=== PATIENT | male | born 1955 | race Two or more races ===

== ENCOUNTER 2024-03-05 13:04 | Emergency (ER) | payer OTHER ==
[~2024-03-05] VITALS: Ht 170.2 cm; Wt 84.8 kg
[2024-03-05] MEDS ORDERED: DIOVAN HCT 1601 EACH PO (13:13)
[2024-03-05] MEDS ORDERED: PRAVASTATIN SOD40 MG PO (13:14)
[2024-03-05] MEDS ORDERED: ECOTRIN81 MG (13:14)
[2024-03-05] MEDS ORDERED: FERREX 150 FOR1 EACH PO (15:52)
== END 2024-03-05 16:20 | disposition home or self-care (01) ==
LOC: ER 13:06
DX: K64.4 Residual hemorrhoidal skin tags (principal); K64.8 Other hemorrhoids